=== PATIENT | female | born 1985 | race Two or more races ===

== ENCOUNTER 2025-02-13 10:58 | Emergency (ER) | payer MEDICAID, SELFPAY ==
[2025-02-13 11:21] VITALS: BP 119/74; PULSE 86; RESP 16; TEMP 36.7; O2SAT 97; BMI 21.4
--- NOTE | 2025-02-13 12:42 | PD.EDURI ---
Upper Respiratory Inf. RME/HPI General Chief Complaint: Flu Like Symptoms Stated Complaint: COUGH, RUNNY NOSE Time Seen by Provider: 02/13/25 11:27 Arrival date/time: 02/13/25 10:58 This is a 39-year-old female that comes into the emergency room with complaints of runny nose and back pain. Patient is also being seen here in the emergency room with her daughter as well. They both have the same symptoms. Her patient her daughter started with her symptoms 5 days ago and her symptoms started 2 days ago. Patient denies any past medical history. Related Data Home Medications ?Medication ?Instructions ?Recorded ?Confirmed vit no.95-ferrous 1 tab PO QDAY 06/05/24 06/05/24 fumarate 28 mg-folic acid 800 mcg tablet () Previous Rx's ?Medication ?Instructions ?Recorded docusate sodium 100 mg capsule 100 mg PO BID #60 caps 06/06/24 (Colace) ibuprofen 800 mg tablet 800 mg PO Q6H PRN pain #120 tabs 06/06/24 lanolin 50 % topical ointment 1 applic topical TID PRN skin 06/06/24 irritation #15 tubes ibuprofen 800 mg tablet 800 mg PO Q6H PRN pain #10 tabs 02/13/25 Allergies Allergy/AdvReac Type Severity Reaction Status Date / Time No Known Allergies Allergy Verified 02/13/25 11:01 Course Orders Category Date Time Status Bedside COVID-19 Antigen Test NOW Care 02/13/25 11:39 Active Bedside Influenza A&B Antigen Test NOW Care 02/13/25 11:39 Completed Vital Signs Vital signs: Vital Signs Temperature 98.1 F 02/13/25 11:21 Pulse Rate 86 02/13/25 11:21 Respiratory Rate 16 02/13/25 11:21 Blood Pressure 119/74 02/13/25 11:21 Pulse Oximetry (%) 97 02/13/25 11:21 Oxygen Delivery Method Room Air 02/13/25 11:21 Upper Respiratory Infection MDM Narrative MDM Narrative:: COVID and influenza negative will treat patient with Tylenol and ibuprofen. I encouraged supportive measures such as rest and plenty of fluids. Patient told to follow-up with primary provider in 1 to 2 days. Come back to the emergency room if symptoms change or worsen. Discharge Plan Plan Patient Disposition: HOME (Self Care) Patient condition on transfer: Stable Prescriptions/Referrals Prescriptions/Med Rec: New ibuprofen 800 mg tablet 800 mg PO Q6H PRN (Reason: pain) Qty: 10 0RF No Action ibuprofen 800 mg tablet 800 mg PO Q6H MDD 4 PRN (Reason: pain) Qty: 120 0RF docusate sodium [Colace] 100 mg capsule 100 mg PO BID Qty: 60 0RF lanolin 50 % ointment 1 applic topical TID PRN (Reason: skin irritation) Qty: 15 0RF PNV cmb#95-ferrous fumarate-FA [] 28 mg iron- 800 mcg tablet 1 tab PO QDAY Patient Comments: TAKE 1 TABLET BY MOUTH EVERY DAY Referrals: No Primary/Family,Physician [Primary Care Provider] - In 1 week Problem List Clinical Impression: URI (upper respiratory infection) Patient/Caregiver Discharge Instructions Discharge Activity: activity as tolerated Education Materials: ED URI, Viral, No Abx (Adult) Additional Instructions: Follow up with primary provider in 1-2 days. Come back to ED if symptoms change or worsen Print Language: Mohawk Stand Alone Forms: Dinorah Award Info., Patient Portal Info Letter PA/CABLE FERRYBOAT OPERATOR Supervising Physician PA/CABLE FERRYBOAT OPERATOR Supervising Physician: diane
[2025-02-13] MEDS: ACETAMINOPHEN 500 MG TABLET 1000 MG PO (13:26)
[2025-02-13] MEDS: IBUPROFEN TAB 400 MG TABLET 800 MG PO (13:26)
== END 2025-02-13 13:38 | disposition home or self-care (01) ==
PROVIDERS: Emergency Provider Emergency Medicine
DX: J06.9 Acute upper respiratory infection, unspecified (principal)
CPT/HCPCS: 87400; 87811; 99283; A9270

== ENCOUNTER 2025-03-13 15:47 | Emergency (ER) | payer MEDICAID, SELFPAY ==
[2025-03-13 16:33] VITALS: BP 127/84; PULSE 93; RESP 18; TEMP 36.7; O2SAT 100; BMI 21.7
--- NOTE | 2025-03-13 16:37 | EDNOTE_ITS ---
ED Anxiety RME/HPI General Chief Complaint: Anxiety Stated Complaint: SOB WITH CHEST PAIN Time Seen by Provider: 03/13/25 16:06 Arrival date/time: 03/13/25 15:47 This is a 39-year-old female who comes in with complaints of shortness of breath and chest pain that started prior to arrival. Patient states she was cooking prior to arrival. Patient states she was not stressed out but symptoms to started out of the blue. Patient denies any past medical history. Patient reports some nausea. Patient complains of anxiety. Related Data Home Medications ?Medication ?Instructions ?Recorded ?Confirmed vit no.95-ferrous 1 tab PO QDAY 06/05/24 08/2 02/03 fumarate 28 mg-folic acid 800 mcg tablet () Previous Rx's ?Medication ?Instructions ?Recorded docusate sodium 100 mg capsule 100 mg PO BID #60 caps 06/06/24 (Colace) ibuprofen 800 mg tablet 800 mg PO Q6H PRN pain #120 tabs 06/06/24 lanolin 50 % topical ointment 1 applic topical TID PRN skin 06/06/24 irritation #15 tubes ibuprofen 800 mg tablet 800 mg PO Q6H PRN pain #10 t abs 02/13/25 omeprazole 20 mg capsule,delayed 20 mg PO QDAY 14 days #14 caps 03/13/25 release Allergies Allergy/AdvReac Type Severity Reaction Status Date / Time No Known Allergies Allergy Unverified 03/13/25 17:32 Course Vital Signs Vital signs: Vital Signs Temperature 98.0 F 03/13/25 16:33 Pulse Rate 93 03/13/25 16:33 Respiratory Rate 18 03/13/25 16:33 Blood Pressure 127/84 03/13/25 16:33 Pulse Oximetry (%) 100 03/13/25 16:33 Oxygen Delivery Method Room Air 03/13/25 16:33 Discharge Plan Plan Patient Disposition: HOME (Self Care) Patient condition on transfer: Stable Prescriptions/Referrals Prescriptions/Med Rec: New omeprazole 20 mg capsule,delayed release(DR/EC) 20 mg PO QDAY 14 Days Qty: 14 0RF No Action ibuprofen 800 mg tablet 800 mg PO Q6H MDD 4 PRN (Reason: pain) Qty: 120 0RF docusate sodium [Colace] 100 mg capsule 100 mg PO BID Qty: 60 0RF lanolin 50 % ointment 1 applic topical TID PRN (Reason: skin irritation) Qty: 15 0RF PNV cmb#95-ferrous fumarate-FA [] 28 mg iron- 800 mcg tablet 1 tab PO QDAY Patient Comments: TAKE 1 TABLET BY MOUTH EVERY DAY ibuprofen 800 mg tablet 800 mg PO Q6H PRN (Reason: pain) Qty: 10 0RF Referrals: No Primary/Family,Physician [Primary Care Provider] - In 1 week Problem List Clinical Impression: Hx of gastroesophageal reflux (GERD) Patient/Caregiver Discharge Instructions Discharge Activity: activity as tolerated Education Materials: ED GERD (Adult) Additional Instructions: Follow up with primary provider in 1-2 days. Come back to ED if symptoms change or worsen Print Language: Wallisian Stand Alone Forms: Dinorah Award Info., Patient Portal Info Letter PA/COMPUTER NUMERICAL CONTROL PROGRAMMER Supervising Physician PA/COMPUTER NUMERICAL CONTROL PROGRAMMER Supervising Physician: [email or web address]
--- NOTE | 2025-03-13 16:47 | EKG_ITS ---
[facility] Test Date: 2025-03-13 Pat Name: ABHI DOVE Department: Room: - Gender: Female Search Specialist: : 1985 Requested By: Nayely Collins Order Number: [id number] Reading MD: Nayely Collins Measurements Intervals [place] Rate: 88 P: 1 MI: 148 QRS: 38 QRSD: 81 T: 41 QT: 342 QTc: 414 Interpretive Statements SINUS RHYTHM POSSIBLE RIGHT VENTRICULAR CONDUCTION DELAY [RSR (QR) IN V1/V2] No previous ECG available for comparison /[id number]/[email or web address]/[id number]
[2025-03-13] MEDS: LIDOCAINE VISCOUS 2% 15 ML UDC 10 ML PO (17:54)
[2025-03-13] MEDS: MG HYD/AL HYD/SIME (Maalox Reg) SUSP 30 ML UDC PO (17:54)
== END 2025-03-13 18:23 | disposition home or self-care (01) ==
PROVIDERS: Emergency Provider Emergency Medicine
DX: K21.9 Gastro-esophageal reflux disease without esophagitis (principal); R06.02 Shortness of breath; R07.9 Chest pain, unspecified; R94.31 Abnormal electrocardiogram [ECG] [EKG]
CPT/HCPCS: 93005; 99283; J3490; A9270